=== PATIENT | female | born 1935 | race Caucasian/White ===

== ENCOUNTER 2022-07-22 17:48 | Inpatient (IN) | payer MEDICARE ==
[2022-07-22 21:48] VITALS: BMI 22.8
[2022-07-22] MEDS ORDERED: Ondansetron PF 4 MG/2 ML Vial IVP PRN (23:09)
[2022-07-22] MEDS ORDERED: Acetaminophen 650 MG Suppository PR PRN (23:09)
[2022-07-22] MEDS ORDERED: Ondansetron ODT 4 MG TAB PO PRN (23:09)
[2022-07-23] MEDS: Ketorolac Tromethamine 30 MG/ML VIAL IVP PRN ×3 (00:25→18:02)
[2022-07-23] MEDS: Sodium Chloride 0.9% 1,000 ML IV SCH ×2 (00:25→09:59)
[2022-07-23 04:26] LABS: #Eosinphils 0.1 thou/uL (0.0-0.7); #Lymphocytes 0.8 thou/uL (1.20-3.40); #Monocytes 0.2 thou/uL (0.11-0.59); #Neutrophils 3.2 thou/uL (1.40-6.50); %Basophils 0.1 % (0.0-1.0); %Eosinophils 1.4 % (0.0-10.0); %Lymphocytes 18.7 % (21.0-51.0); %Monocytes 4.9 % (0.0-10.0); Hemoglobin 9.8 g/dL (12.0-16.0); Mean Corpuscular HGB CONC 32.3 g/dL (32.0-36.0); Mean Corpuscular Hemoglobin 30.7 pg (27.0-31.0); Mean Corpuscular Volume 95.2 fl (78.0-98.0); Platelet Count 126 10x3/uL (130-400); RBC Distribution Width 12.7 % (11.5-14.5); Red Blood Cell (RBC) Count 3.19 mill/uL (4.20-5.40); White Blood Cell (WBC) Count 4.3 10x3/uL (4.8-10.8)
[2022-07-23] MEDS: cefTRIAXone\\ROCEPHIN 1 GM in Sodium Chloride 0.9% 100 ML IVPB SCH (04:35)
[2022-07-23 04:38] LABS: Anion Gap 10 mmol/L (10-20); BUN (Urea Nitrogen) 28 mg/dL (9.8-20.1); Calc. Creatinine Clearance 47 mL/min (70-130); Calcium 8.3 mg/dL (7.8-10.44); Carbon Dioxide 28 mmol/L (23-31); Chloride 104 mmol/L (98-107); Estimated GFR 81; Glucose 112 mg/dL (83-110); Potassium 3.7 mmol/L (3.5-5.1); Sodium 138 mmol/L (136-145)
[2022-07-23] MEDS: Morphine 4 MG/ML VIAL SLOW IVP PRN (04:45)
[2022-07-23] MEDS: Acetaminophen 325 MG TAB PO PRN (06:36)
[2022-07-23] MEDS ORDERED: Iopamidol 370 76% 100 ML VIAL ONE (08:40)
[2022-07-23] MEDS: Valsartan 80 MG TAB PO SCH (09:01)
[2022-07-23] MEDS: Gabapentin 300 MG CAP PO SCH ×2 (09:02→21:25)
[2022-07-23] MEDS: Aspirin 81 mg Enteric Coated Tablet PO SCH (09:03)
[2022-07-23] MEDS: Carvedilol 6.25 MG TAB PO SCH ×2 (09:03→17:59)
[2022-07-23] MEDS: Morphine IR Tab 15 MG TAB PO SCH ×2 (09:03→21:26)
[2022-07-23] MEDS: Atorvastatin Calcium 20 MG TAB PO SCH (21:26)
[2022-07-23] MEDS: traZODone HCl 50 MG TAB PO SCH (21:26)
[2022-07-24] MEDS: Sodium Chloride 0.9% 1,000 ML IV SCH ×3 (00:38→10:54)
[2022-07-24] MEDS: cefTRIAXone\\ROCEPHIN 1 GM in Sodium Chloride 0.9% 100 ML IVPB SCH (03:39)
[2022-07-24] MEDS: Morphine 4 MG/ML VIAL SLOW IVP PRN (03:47)
[2022-07-24] MEDS: Ketorolac Tromethamine 30 MG/ML VIAL IVP PRN (07:23)
[2022-07-24] MEDS: Valsartan 80 MG TAB PO SCH (08:24)
[2022-07-24] MEDS: Carvedilol 6.25 MG TAB PO SCH ×2 (08:24→17:30)
[2022-07-24] MEDS: Gabapentin 300 MG CAP PO SCH ×2 (08:25→21:58)
[2022-07-24] MEDS: Morphine IR Tab 15 MG TAB PO SCH ×2 (08:25→22:01)
[2022-07-24] MEDS: Aspirin 81 mg Enteric Coated Tablet PO SCH (08:26)
[2022-07-24] MEDS ORDERED: hydrALAZINE 20 MG/ML VIAL SLOW IVP PRN (13:46)
[2022-07-24] MEDS: Lidocaine 5% Patch TD SCH (14:54)
[2022-07-24] MEDS: Acetaminophen 325 MG TAB PO PRN (15:35)
[2022-07-24] MEDS: Cyclobenzaprine 10 MG TAB PO PRN (17:36)
[2022-07-24] MEDS ORDERED: Labetalol HCl 100 MG/20 ML VIAL SLOW IVP PRN (21:07)
[2022-07-24] MEDS: Atorvastatin Calcium 20 MG TAB PO SCH (22:00)
[2022-07-24] MEDS: traZODone HCl 50 MG TAB PO SCH (22:00)
[2022-07-25] MEDS: Sodium Chloride 0.9% 1,000 ML IV SCH ×3 (01:47→23:36)
[2022-07-25] MEDS: Transdermal Patch Removal TOP SCH (01:55)
[2022-07-25] MEDS: cefTRIAXone\\ROCEPHIN 1 GM in Sodium Chloride 0.9% 100 ML IVPB SCH (04:23)
[2022-07-25 04:52] LABS: #Eosinphils 0.1 thou/uL (0.0-0.7); #Lymphocytes 0.8 thou/uL (1.20-3.40); #Monocytes 0.3 thou/uL (0.11-0.59); #Neutrophils 2.7 thou/uL (1.40-6.50); %Basophils 0.1 % (0.0-1.0); %Eosinophils 1.3 % (0.0-10.0); %Lymphocytes 20.2 % (21.0-51.0); %Monocytes 6.7 % (0.0-10.0); %Neutrophils 71.6 % (42.0-75.0); Hemoglobin 10.8 g/dL (12.0-16.0); Mean Corpuscular HGB CONC 31.1 g/dL (32.0-36.0); Mean Corpuscular Hemoglobin 28.7 pg (27.0-31.0); Mean Corpuscular Volume 92.4 fl (78.0-98.0); Mean Platelet Volume 6.7 fL (7.4-10.4); Platelet Count 166 10x3/uL (130-400); RBC Distribution Width 12.8 % (11.5-14.5); Red Blood Cell (RBC) Count 3.76 mill/uL (4.20-5.40); White Blood Cell (WBC) Count 3.8 10x3/uL (4.8-10.8)
[2022-07-25 05:16] LABS: ALT (SGPT) 10 U/L (8-55); AST (SGOT) 16 U/L (5-34); Albumin 3.1 g/dL (3.4-4.8); Alkaline Phosphatase 66 U/L (40-110); Anion Gap 17 mmol/L (10-20); BUN (Urea Nitrogen) 12 mg/dL (9.8-20.1); Bilirubin, Total 0.4 mg/dL (0.2-1.2); Calc. Creatinine Clearance 52 mL/min (70-130); Calcium 8.8 mg/dL (7.8-10.44); Carbon Dioxide 25 mmol/L (23-31); Chloride 105 mmol/L (98-107); Estimated GFR 86; Globulin 2.9 g/dL (2.4-3.5); Glucose 78 mg/dL (83-110); Potassium 3.5 mmol/L (3.5-5.1); Sodium 143 mmol/L (136-145)
[2022-07-25] MEDS: Valsartan 80 MG TAB PO SCH (08:34)
[2022-07-25] MEDS: Gabapentin 300 MG CAP PO SCH ×2 (08:35→22:05)
[2022-07-25] MEDS: Aspirin 81 mg Enteric Coated Tablet PO SCH (08:35)
[2022-07-25] MEDS: Morphine IR Tab 15 MG TAB PO SCH ×2 (08:36→22:06)
[2022-07-25] MEDS: Carvedilol 6.25 MG TAB PO SCH ×2 (08:36→16:43)
[2022-07-25] MEDS ORDERED: Potassium Chloride 20 MEQ TAB PO SCH (10:45)
[2022-07-25] MEDS: Lidocaine 5% Patch TD SCH (13:50)
[2022-07-25] MEDS: Acetaminophen 325 MG TAB PO PRN (15:30)
[2022-07-25] MEDS: traZODone HCl 50 MG TAB PO SCH (22:05)
[2022-07-25] MEDS: Atorvastatin Calcium 20 MG TAB PO SCH (22:07)
[2022-07-25] MEDS ORDERED: DULoxetine 60 MG CAP PO SCH (23:15)
[2022-07-25] MEDS ORDERED: Carvedilol 6.25 MG TAB PO SCH (23:15)
[2022-07-26] MEDS: Transdermal Patch Removal TOP SCH (02:53)
[2022-07-26] MEDS: cefTRIAXone\\ROCEPHIN 1 GM in Sodium Chloride 0.9% 100 ML IVPB SCH (04:47)
[2022-07-26] MEDS: Cyclobenzaprine 10 MG TAB PO PRN (06:54)
[2022-07-26] MEDS: Acetaminophen 325 MG TAB PO PRN (06:57)
[2022-07-26] MEDS: Carvedilol 6.25 MG TAB PO SCH (09:18)
[2022-07-26] MEDS: Morphine IR Tab 15 MG TAB PO SCH (09:20)
[2022-07-26] MEDS: Aspirin 81 mg Enteric Coated Tablet PO SCH (09:20)
[2022-07-26] MEDS: Gabapentin 300 MG CAP PO SCH (09:25)
[2022-07-26] MEDS: Valsartan 80 MG TAB PO SCH (09:28)
[2022-07-26] MEDS: Sodium Chloride 0.9% 1,000 ML IV SCH (09:42)
[2022-07-26] MEDS: Lidocaine 5% Patch TD SCH (14:50)
[2022-07-26 16:19] VITALS: BP 169/74; TEMP 98.6
== END 2022-07-26 16:00 | disposition home or self-care (01) | DRG 690 ==
LOC: 2NO 20:21
PROVIDERS: ADMIT Family Medicine; ATTEND Internal Medicine
DX: N39.0 Urinary tract infection, site not specified (principal); I50.32 Chronic diastolic (congestive) heart failure; Z20.822 Contact with and (suspected) exposure to COVID-19; I11.0 Hypertensive heart disease with heart failure; N20.0 Calculus of kidney; M51.36 Other intervertebral disc degeneration, lumbar region; M81.0 Age-related osteoporosis without current pathological fracture; M19.90 Unspecified osteoarthritis, unspecified site; Z95.810 Presence of automatic (implantable) cardiac defibrillator; Z88.0 Allergy status to penicillin; Z79.82 Long term (current) use of aspirin; Z79.899 Other long term (current) drug therapy
CPT/HCPCS: 36415; 74178; 76705; 80048; 80053; 85025; 87040; 87086; J0360; J0696; J1650; J1885; J2270; J3490; J7050; Q9967

== ENCOUNTER 2022-08-22 19:43 | Inpatient (IN) | payer MEDICARE ==
[2022-08-22] MEDS ORDERED: Dextrose 5% in Water 1,000 ML IV PRN (21:07)
[2022-08-22] MEDS ORDERED: Ondansetron ODT 4 MG TAB PO PRN (21:07)
[2022-08-22] MEDS ORDERED: Ondansetron PF 4 MG/2 ML Vial IVP PRN (21:07)
[2022-08-22] MEDS ORDERED: Morphine 4 MG/ML VIAL SLOW IVP PRN (21:07)
[2022-08-22] MEDS ORDERED: traMADol HCl 50 MG TAB PO PRN ×2 (21:07)
[2022-08-22] MEDS ORDERED: Dextrose 50% Abboject 50 ML SYRINGE SLOW IVP PRN (21:07)
[2022-08-22] MEDS ORDERED: Ipratropium/Albuterol 3 ML NEB NEB PRN (21:07)
[2022-08-22] MEDS ORDERED: hydrALAZINE 20 MG/ML VIAL SLOW IVP PRN (21:07)
[2022-08-22] MEDS ORDERED: Cyclobenzaprine 10 MG TAB PO PRN (21:18)
[2022-08-22 21:52] LABS: #Lymphocytes 0.9 thou/uL (1.20-3.40); #Monocytes 0.3 thou/uL (0.11-0.59); %Basophils 0.4 % (0.0-1.0); %Eosinophils 0.7 % (0.0-10.0); %Lymphocytes 16.4 % (21.0-51.0); %Monocytes 5.3 % (0.0-10.0); %Neutrophils 77.3 % (42.0-75.0); Hemoglobin 10.9 g/dL (12.0-16.0); Mean Corpuscular HGB CONC 31.4 g/dL (32.0-36.0); Mean Corpuscular Hemoglobin 29.1 pg (27.0-31.0); Mean Corpuscular Volume 92.5 fl (78.0-98.0); Mean Platelet Volume 6.1 fL (7.4-10.4); Platelet Count 150 10x3/uL (130-400); RBC Distribution Width 13.9 % (11.5-14.5); Red Blood Cell (RBC) Count 3.74 mill/uL (4.20-5.40); White Blood Cell (WBC) Count 5.2 10x3/uL (4.8-10.8)
[2022-08-22 22:12] LABS: Anion Gap 13 mmol/L (10-20); BUN (Urea Nitrogen) 18 mg/dL (9.8-20.1); Calc. Creatinine Clearance 0 mL/min (70-130); Calcium 8.6 mg/dL (7.8-10.44); Carbon Dioxide 25 mmol/L (23-31); Chloride 103 mmol/L (98-107); Estimated GFR 68; Glucose 95 mg/dL (83-110); Magnesium 1.7 mg/dL (1.6-2.6); Potassium 3.8 mmol/L (3.5-5.1); Sodium 137 mmol/L (136-145)
[2022-08-22] MEDS ORDERED: Magnesium Sulfate 3 GM in Sodium Chloride 0.9% 100 ML IVPB SCH (23:00)
[2022-08-22 23:02] VITALS: BMI 22.2
[2022-08-22] MEDS: Potassium Chloride 20 MEQ in Premix Bag 1 BAG IVPB SCH (23:34)
[2022-08-22] MEDS: Acetaminophen 500 MG TAB PO SCH (23:57)
[2022-08-23 01:28] LABS: Bacteria/HPF None Seen HPF (None Seen); RBC/HPF Greater than 50 HPF (0-3); Squamous Epithelial 0-3 HPF (0-3); WBC/HPF 0-3 HPF (0-3)
[2022-08-23 01:29] LABS: Calcium Oxalate Crystals 3+ HPF (None Seen)
[2022-08-23 02:40] LABS: SARS-CoV-2 NAA Rapid Test Not Detected (NotDetected)
[2022-08-23] MEDS: Potassium Chloride 20 MEQ in Premix Bag 1 BAG IVPB SCH (02:54)
[2022-08-23] MEDS ORDERED: Sodium Chloride 0.9% 1,000 ML IV SCH (05:45)
[2022-08-23] MEDS: Acetaminophen 500 MG TAB PO SCH ×4 (06:33→23:54)
[2022-08-23 07:09] LABS: #Eosinphils 0.1 thou/uL (0.0-0.7); #Lymphocytes 1.1 thou/uL (1.20-3.40); #Monocytes 0.4 thou/uL (0.11-0.59); #Neutrophils 3.9 thou/uL (1.40-6.50); %Basophils 0.8 % (0.0-1.0); %Lymphocytes 20.2 % (21.0-51.0); Hemoglobin 10.7 g/dL (12.0-16.0); Mean Corpuscular HGB CONC 31.9 g/dL (32.0-36.0); Mean Corpuscular Hemoglobin 29.5 pg (27.0-31.0); Mean Corpuscular Volume 92.4 fl (78.0-98.0); Platelet Count 161 10x3/uL (130-400); RBC Distribution Width 14.1 % (11.5-14.5); Red Blood Cell (RBC) Count 3.63 mill/uL (4.20-5.40); White Blood Cell (WBC) Count 5.5 10x3/uL (4.8-10.8)
[2022-08-23] MEDS ORDERED: Carvedilol 6.25 MG TAB PO SCH ×2 (09:00→21:00)
[2022-08-23] MEDS ORDERED: Famotidine 20 MG TAB PO SCH (09:00)
[2022-08-23] MEDS ORDERED: Non-Formulary Item 1 EACH (Valsartan [Valsartan] 160 MG Tablet) PO SCH (09:00)
[2022-08-23] MEDS ORDERED: Non-Formulary Item 1 EACH (Gabapentin [Gabapentin] 600 MG Tablet) PO SCH (09:00)
[2022-08-23] MEDS: Valsartan 80 MG TAB PO SCH (09:16)
[2022-08-23] MEDS: Gabapentin 300 MG CAP PO SCH ×2 (09:16→20:20)
[2022-08-23] MEDS: Carvedilol 6.25 MG TAB PO SCH ×2 (09:17→20:19)
[2022-08-23] MEDS: Famotidine 20 MG TAB PO SCH (09:18)
[2022-08-23] MEDS: Polyethylene Glycol 3350 17 GM Packet PO SCH (09:18)
[2022-08-23] MEDS: Senokot S 8.6-50 MG TAB PO SCH ×2 (09:18→20:20)
[2022-08-23] MEDS: traMADol HCl 50 MG TAB PO SCH ×3 (11:33→23:55)
[2022-08-23] MEDS ORDERED: fentaNYL PF 100 MCG/2 ML SYRINGE ONE (14:53)
[2022-08-23] MEDS ORDERED: PROPOFOL 20 ML ONE (14:53)
[2022-08-23] MEDS ORDERED: Ketamine 50 MG/ML (10ML VIAL) ONE (14:58)
[2022-08-23] MEDS ORDERED: PROPOFOL 200 MG/20 ML VIAL ONE (15:18)
[2022-08-23] MEDS ORDERED: Promethazine HCl 25 MG/ML VIAL IM PRN (15:39)
[2022-08-23] MEDS ORDERED: Ondansetron HCl/PF 4 MG/2 ML Vial IVP PRN (15:39)
[2022-08-23] MEDS: DULoxetine 60 MG CAP PO SCH (20:19)
[2022-08-23] MEDS: traZODone HCl 150 MG TAB PO SCH (20:20)
[2022-08-23] MEDS ORDERED: Non-Formulary Item 1 EACH (Trazodone Hcl [Trazodone Hcl] 100 MG Tablet) PO SCH (21:00)
[2022-08-24] MEDS: Acetaminophen 500 MG TAB PO SCH ×3 (05:14→23:19)
[2022-08-24] MEDS: traMADol HCl 50 MG TAB PO SCH ×4 (05:15→23:20)
[2022-08-24 07:18] LABS: #Eosinphils 0.1 thou/uL (0.0-0.7); #Lymphocytes 0.6 thou/uL (1.20-3.40); #Monocytes 0.3 thou/uL (0.11-0.59); #Neutrophils 2.7 thou/uL (1.40-6.50); %Lymphocytes 16.2 % (21.0-51.0); %Monocytes 7.3 % (0.0-10.0); %Neutrophils 74.4 % (42.0-75.0); Hemoglobin 10.1 g/dL (12.0-16.0); Mean Corpuscular HGB CONC 30.8 g/dL (32.0-36.0); Mean Corpuscular Hemoglobin 28.3 pg (27.0-31.0); Mean Corpuscular Volume 92.1 fl (78.0-98.0); Mean Platelet Volume 6.2 fL (7.4-10.4); Platelet Count 161 10x3/uL (130-400); RBC Distribution Width 13.7 % (11.5-14.5); Red Blood Cell (RBC) Count 3.55 mill/uL (4.20-5.40); White Blood Cell (WBC) Count 3.7 10x3/uL (4.8-10.8)
[2022-08-24 07:33] LABS: Anion Gap 12 mmol/L (10-20); BUN (Urea Nitrogen) 10 mg/dL (9.8-20.1); Calc. Creatinine Clearance 50 mL/min (70-130); Calcium 8.2 mg/dL (7.8-10.44); Carbon Dioxide 27 mmol/L (23-31); Chloride 104 mmol/L (98-107); Estimated GFR 86; Glucose 78 mg/dL (83-110); Magnesium 1.7 mg/dL (1.6-2.6); Phosphorus 3.7 mg/dL (2.3-4.7); Sodium 139 mmol/L (136-145)
[2022-08-24] MEDS ORDERED: Aspirin 81 mg Enteric Coated Tablet PO SCH (09:00)
[2022-08-24] MEDS: Famotidine 20 MG TAB PO SCH (10:14)
[2022-08-24] MEDS: Carvedilol 6.25 MG TAB PO SCH ×2 (10:15→20:03)
[2022-08-24] MEDS: Valsartan 80 MG TAB PO SCH (10:15)
[2022-08-24] MEDS: Polyethylene Glycol 3350 17 GM Packet PO SCH (10:17)
[2022-08-24] MEDS: Senokot S 8.6-50 MG TAB PO SCH ×2 (10:18→20:00)
[2022-08-24] MEDS: Morphine 2 MG/ML VIAL SLOW IVP PRN (10:22)
[2022-08-24] MEDS: Gabapentin 300 MG CAP PO SCH ×2 (10:23→20:00)
[2022-08-24] MEDS ORDERED: FENTANYL 50 MCG/ML 1 ML VIAL ONE (14:38)
[2022-08-24] MEDS ORDERED: Ropivacaine 0.5% HCl/PF (150 MG/30 ML VIAL) ONE (14:38)
[2022-08-24] MEDS ORDERED: Vancomycin 1 GM VIAL ONE (15:19)
[2022-08-24] MEDS ORDERED: Famotidine/PF 20 mg/2ml Vial ONE (15:21)
[2022-08-24] MEDS ORDERED: Fentanyl 250 MCG/5 ML VIAL ONE (15:21)
[2022-08-24] MEDS ORDERED: PROPOFOL 200 MG/20 ML VIAL ONE (15:42)
[2022-08-24] MEDS ORDERED: Lidocaine 1% PF 5 ML VIAL ONE (15:42)
[2022-08-24] MEDS ORDERED: Ondansetron PF 4 MG/2 ML Vial ONE (15:42)
[2022-08-24] MEDS ORDERED: PHENYLEPHRINE-NS 100 MCG/ML 10 ML SYRINGE ONE (15:42)
[2022-08-24] MEDS ORDERED: NEOSTIGMINE 3 MG/3 ML SYR 3 MG/3 ML SYRINGE ONE (15:42)
[2022-08-24] MEDS ORDERED: Glycopyrrolate 0.2 MG/ML 5 ML SYRINGE ONE (15:42)
[2022-08-24] MEDS ORDERED: Rocuronium Bromide 10 MG/ML (10ML VIAL) ONE (15:42)
[2022-08-24] MEDS ORDERED: Calcium Chloride 1 GM/10 ML Abboject SYRINGE ONE (15:42)
[2022-08-24] MEDS ORDERED: Promethazine HCl 25 MG/ML VIAL IM PRN ×2 (16:49→17:39)
[2022-08-24] MEDS ORDERED: PACU-Morphine 4MG/ML VIAL SLOW IVP PRN (16:49)
[2022-08-24] MEDS ORDERED: diphenhydrAMINE 25 MG CAP PO PRN (17:39)
[2022-08-24] MEDS ORDERED: Ondansetron PF 4 MG/2 ML Vial IVP PRN (17:39)
[2022-08-24] MEDS ORDERED: Zolpidem Tartrate 5 MG TAB PO PRN (17:39)
[2022-08-24] MEDS ORDERED: Acetaminophen 325 MG TAB PO PRN (17:39)
[2022-08-24] MEDS ORDERED: HYDROcodone/Acetaminophen 10/325 mg Tablet PO PRN ×2 (17:39)
[2022-08-24] MEDS: Sodium Chloride 0.9% 1,000 ML IV SCH (19:45)
[2022-08-24] MEDS: CEFAZOLIN 2 GM in Sodium Chloride 0.9% 100 ML IVPB SCH (19:46)
[2022-08-24] MEDS: Aspirin 81 mg Enteric Coated Tablet PO SCH (19:59)
[2022-08-24] MEDS: Ferrous Gluconate 324 MG TAB PO SCH (20:00)
[2022-08-24] MEDS: DULoxetine 60 MG CAP PO SCH (20:00)
[2022-08-24] MEDS: traZODone HCl 150 MG TAB PO SCH (20:00)
[2022-08-24] MEDS ORDERED: Senokot S 8.6-50 MG TAB PO SCH (21:00)
[2022-08-24] MEDS: traMADol HCl 50 MG TAB PO PRN (21:33)
[2022-08-25] MEDS: CEFAZOLIN 2 GM in Sodium Chloride 0.9% 100 ML IVPB SCH (03:06)
[2022-08-25] MEDS: Sodium Chloride 0.9% 1,000 ML IV SCH ×2 (03:21→20:34)
[2022-08-25] MEDS: traMADol HCl 50 MG TAB PO SCH ×3 (05:43→18:30)
[2022-08-25] MEDS: Acetaminophen 500 MG TAB PO SCH ×3 (05:43→18:28)
[2022-08-25 06:49] LABS: Hemoglobin 8.5 g/dL (12.0-16.0); Mean Corpuscular HGB CONC 31.6 g/dL (32.0-36.0); Mean Corpuscular Hemoglobin 28.9 pg (27.0-31.0); Mean Corpuscular Volume 91.4 fl (78.0-98.0); Mean Platelet Volume 5.9 fL (7.4-10.4); Platelet Count 120 10x3/uL (130-400); RBC Distribution Width 13.8 % (11.5-14.5); Red Blood Cell (RBC) Count 2.92 mill/uL (4.20-5.40); White Blood Cell (WBC) Count 3.8 10x3/uL (4.8-10.8)
[2022-08-25] MEDS: Senokot S 8.6-50 MG TAB PO SCH ×2 (08:32→20:35)
[2022-08-25] MEDS: Valsartan 80 MG TAB PO SCH (08:32)
[2022-08-25] MEDS: Multivitamin W/ Minerals 1 TAB PO SCH (08:32)
[2022-08-25] MEDS: Polyethylene Glycol 3350 17 GM Packet PO SCH (08:32)
[2022-08-25] MEDS: Gabapentin 300 MG CAP PO SCH ×2 (08:32→20:35)
[2022-08-25] MEDS: Aspirin 81 mg Enteric Coated Tablet PO SCH ×2 (08:33→20:34)
[2022-08-25] MEDS: Famotidine 20 MG TAB PO SCH (08:33)
[2022-08-25] MEDS: Ferrous Gluconate 324 MG TAB PO SCH ×2 (08:33→20:35)
[2022-08-25] MEDS: Carvedilol 6.25 MG TAB PO SCH ×2 (08:37→20:34)
[2022-08-25] MEDS: Morphine 2 MG/ML VIAL SLOW IVP PRN (08:37)
[2022-08-25] MEDS: Morphine IR Tab 15 MG TAB PO PRN (14:34)
[2022-08-25] MEDS: traZODone HCl 150 MG TAB PO SCH (20:35)
[2022-08-25] MEDS: DULoxetine 60 MG CAP PO SCH (20:35)
[2022-08-26] MEDS: traMADol HCl 50 MG TAB PO PRN (03:13)
[2022-08-26] MEDS: traMADol HCl 50 MG TAB PO SCH ×4 (06:03→17:48)
[2022-08-26] MEDS: Acetaminophen 500 MG TAB PO SCH ×3 (06:06→11:35)
[2022-08-26 06:37] LABS: Hemoglobin 8.6 g/dL (12.0-16.0); Mean Corpuscular HGB CONC 32.9 g/dL (32.0-36.0); Mean Corpuscular Hemoglobin 29.9 pg (27.0-31.0); Mean Corpuscular Volume 90.9 fl (78.0-98.0); Mean Platelet Volume 5.8 fL (7.4-10.4); Platelet Count 141 10x3/uL (130-400); RBC Distribution Width 13.9 % (11.5-14.5); Red Blood Cell (RBC) Count 2.87 mill/uL (4.20-5.40); White Blood Cell (WBC) Count 4.5 10x3/uL (4.8-10.8)
[2022-08-26] MEDS: Valsartan 80 MG TAB PO SCH (08:26)
[2022-08-26] MEDS: Morphine IR Tab 15 MG TAB PO PRN (08:26)
[2022-08-26] MEDS: Carvedilol 6.25 MG TAB PO SCH (08:26)
[2022-08-26] MEDS: Gabapentin 300 MG CAP PO SCH (08:27)
[2022-08-26] MEDS: Aspirin 81 mg Enteric Coated Tablet PO SCH (08:28)
[2022-08-26] MEDS: Famotidine 20 MG TAB PO SCH (08:28)
[2022-08-26] MEDS: Multivitamin W/ Minerals 1 TAB PO SCH (08:28)
[2022-08-26] MEDS: Senokot S 8.6-50 MG TAB PO SCH (08:28)
[2022-08-26] MEDS: Ferrous Gluconate 324 MG TAB PO SCH (08:28)
[2022-08-26] MEDS: Polyethylene Glycol 3350 17 GM Packet PO SCH (08:28)
[2022-08-26 17:01] VITALS: BP 151/67; TEMP 97.7
== END 2022-08-26 17:49 | disposition swing bed (61) | DRG 467 ==
LOC: SURG B 19:43
PROVIDERS: ADMIT Surgery; ATTEND Surgery
PROC: 0QS7XZZ Reposition Left Upper Femur, External Approach (ICD-10-PCS; principal; 2022-08-23)
PROC: 0SRB01Z Replacement of Left Hip Joint with Metal Synthetic Substitute, Open Approach (ICD-10-PCS; 2022-08-24)
PROC: 0SPB0JZ Removal of Synthetic Substitute from Left Hip Joint, Open Approach (ICD-10-PCS; 2022-08-24)
DX: T84.021A Dislocation of internal left hip prosthesis, initial encounter (principal); D61.818 Other pancytopenia; I42.9 Cardiomyopathy, unspecified; I50.32 Chronic diastolic (congestive) heart failure; Z20.822 Contact with and (suspected) exposure to COVID-19; Y83.8 Other surgical procedures as the cause of abnormal reaction of the patient, or of later complication, without mention of misadventure at the time of the procedure; M81.0 Age-related osteoporosis without current pathological fracture; M43.10 Spondylolisthesis, site unspecified; M48.00 Spinal stenosis, site unspecified; Z96.651 Presence of right artificial knee joint; G89.29 Other chronic pain; M54.9 Dorsalgia, unspecified; Z88.0 Allergy status to penicillin; Z95.2 Presence of prosthetic heart valve; Z95.0 Presence of cardiac pacemaker; Z79.899 Other long term (current) drug therapy; Z90.710 Acquired absence of both cervix and uterus; Z98.49 Cataract extraction status, unspecified eye; W18.30XA Fall on same level, unspecified, initial encounter; M24.452 Recurrent dislocation, left hip; S80.02XA Contusion of left knee, initial encounter; S00.81XA Abrasion of other part of head, initial encounter
CPT/HCPCS: 27250; 36415; 70450; 71045; 72170; 80048; 81015; 83735; 83880; 84100; 85025; 85027; 85652; 86140; 87070; 87205; 93005; 93010; 93306; 96374; 96375; 99152; C1713; C1776; J1885; J2060; J2270; J2272; J2405; J2704; J2795; J3010; J3370; J3475; J3480; J3490; J7050; S0028; U0002

== ENCOUNTER 2025-06-11 09:55 | Outpatient (CLI) | payer MEDICARE | END 2025-06-11 09:56 | disposition home or self-care (01) | LOC: SCSULT 09:55 | PROVIDERS: ATTEND Family Medicine | DX: K86.89 Other specified diseases of pancreas (principal); K83.8 Other specified diseases of biliary tract | CPT/HCPCS: 76700; 93976 ==